=== PATIENT | female | born 1970 | race Two or more races ===

== ENCOUNTER → 2024-01-04 | Emergency (ER) | payer OTHER ==
[~2024-01-04] VITALS: Ht 165.1 cm; Wt 49.9 kg
[~2024-01-04] MED LIST: ALLERGY RELIE15.8 ML; ARNUITY ELLIPT50 MCG IH; LEVOFLOXACIN500 MG PO; METHYLPREDNISOLO8 MG; PROAIR RESPICL90 MCG
== END | disposition designated cancer center or children's hospital (05) ==
LOC: ER 11:43
DX: J34.0 Abscess, furuncle and carbuncle of nose (principal)